=== PATIENT | female | born 1980 | race Caucasian/White ===

== ENCOUNTER 2021-10-01 09:56 | Emergency (ER) | payer OTHER ==
[2021-10-01 10:28] VITALS: BP 127/82; PULSE 86; TEMP 97.6; BMI 27.1
[2021-10-01] MEDS ORDERED: KETOROLAC TROMETHAMINE 60 MG/2 ML VIAL IM ONE (10:48)
== END 2021-10-01 14:25 | disposition home or self-care (01) ==
LOC: JERFT 09:56
PROC: 3E023GC Introduction of Other Therapeutic Substance into Muscle, Percutaneous Approach (ICD-10-PCS; principal; 2021-10-01)
DX: M79.601 Pain in right arm (principal)
CPT/HCPCS: 72125-TC; 96372; 99284-25